=== PATIENT | female | born 1965 | race Two or more races ===

== ENCOUNTER 2018-08-23 12:06 | Emergency (ER) | payer OTHER ==
--- NOTE | 2018-08-23 12:42 | EDPHY ---
General Time Seen by Provider: 08/23/18 12:21 Narrative: CLINICAL IMPRESSION: Paronychia, left ring finger cellulitis and lymphangitis ASSESSMENT/PLAN: Patient is a 53-year-old female with a history of insulin-dependent diabetes, hypertension, hyperlipidemia and chronic kidney disease who presents to the emergency department with left ring finger pain, swelling and redness. Patient is afebrile and not toxic appearing, no acute distress. Physical exam reveals paronychia left lateral ring finger with associated cellulitis and lymphangitis. Her vital signs were reviewed, no findings to suggest sepsis. She has had no constitutional symptoms to suggest systemic illness. No indications for imaging, laboratory studies or admission. There was no evidence of necrotizing skin infection, deep space infection, septic joint, compartment syndrome or neurovascular compromise. No Kanaval's signs- specifically the patient is not in flexion, there is no fusiform swelling over the a tendon, there is no tenderness along the tendon sheath and there is no pain with passive extension of the finger; no findings to suggest tenosynovitis. The paronychia was incised and drained, she was given her 1st dose of antibiotics in the emergency department. She is visiting for her son's graduation from the University with plans to return to [place] on Sunday. Very conservative return precautions were discussed while she is in town, she will otherwise follow up with her primary care provider whom she has already called back in [place]. ED PROCEDURES: Procedure: Digital block, abscess drainage. A digital block was performed for what indication. The block was performed with 1% lidocaine and 0.5% bupivacaine without epinephrine. The patient experienced complete pain relief. The procedure was performed by myself. The patient's paronychia was located on the lateral aspect of the left ring finger. I obtained verbal consent from the patient to drain the abscess who was informed about the possibility of bleeding and pain. The abscess was incised with an 11 blade and purulent drainage was expressed. I irrigated the wound, sterile dressing applied. The patient tolerated the procedure well. The procedure was performed by myself. ED COURSE: 1215: Case discussed with Dr. Johnston, he will also evaluate this patient. 1421: On repeat exam prior to discharge the patient had complete relief of her pain, oral antibiotics were given, she has no further questions or concerns. CHIEF COMPLAINT: Left ring finger pain, swelling and redness HPI: Patient is a 53-year-old female with a significant medical history of insulin- dependent diabetes, hypertension, hyperlipidemia and chronic kidney disease who presents to the emergency department with complaints of left finger pain, swelling and redness. Patient reports on Sunday she clipped her fingernails too short, Sunday morning she noticed some tenderness on the lateral aspect of her left ring finger. This morning she noticed significant swelling, pain and redness that is tracking along the dorsal aspect of her finger up her forearm. Patient does have a history of a similar episode requiring incision, drainage and antibiotic therapy on her left middle finger. Patient has not taken anything for pain. Her blood sugars have been well controlled in her ranging in the 90s to low 100s. She denies any fevers, chills, nausea, vomiting or change in appetite. She has had no other constitutional symptoms. She denies any numbness or tingling of the digit, is experiencing some decreased range of motion secondary to pain mostly at the tip of her finger. She denies any other complaint. ROS: Otherwise negative, please see HPI. PHYSICAL EXAM: General Appearance: Well-developed, obese, no acute distress. Respiratory: There are no retractions, lungs are clear to auscultation. Cardiac: Regular rate and rhythm, no murmurs or gallops. Skin: Warm, dry. Upper Extremities: Right upper extremity is unremarkable. Intact distal pulses, Full range of motion intact, no tenderness, no ecchymosis or edema. Left ring finger with obvious paronychia to the lateral aspect, erythema on the dorsal aspect of the finger only extending into the dorsal aspect of the hand and partially up the forearm. Patient is tender on the pad of the left ring finger however she has no tenderness along the tendon sheath. She has no swelling along the palmar aspect. She has no erythema or calor along the palmar aspect of her hand. Radial pulse 2 +. Two point discrimination is intact distally. Lower Extremities: Unremarkable, Intact distal pulses, No edema, No tenderness , No cyanosis, full range of motion intact, No calf tenderness bilaterally. Neuro: Alert and oriented x3, Cranial nerves 2-12 grossly intact. No focal deficit. Psych: Normal mood, normal affect. No agitation. MEDICAL DECISION MAKING: Patient was seen independently. Secondary supervising physician at time of evaluation was Dr. Johnston, he also evaluated this patient. Diagnosis: Left ring finger paronychia, left ring finger cellulitis and lymphangitis. Summary: See Assessment and Plan. Decision to obtain medical records or history from someone other than the patient: No Review / Summarize previous medical records: None available Discussed patient with another provider: Yes, Dr. Johnston Patient Progress: Stable, discharge. - History Smoking Status: Current every day smoker - Objective Vital Signs: Initial Vital Signs Temperature (C) 36.9 C 08/23/18 12:12 Heart Rate 70 08/23/18 12:12 Respiratory Rate 18 08/23/18 12:12 Blood Pressure 169/88 H 08/23/18 12:12 O2 Sat (%) 96 08/23/18 12:12 O2 Delivery Mode Room Air Allergies/Adverse Reactions: No Known Allergies Allergy (Unverified 08/23/18 12:11) Home Medications: Medication Instructions Recorded Cephalexin [Keflex (*)] 500 mg PO Q6H 10 Days cap 08/23/18 Insulin Admin. Supplies 08/23/18 Sulfamethox/Tmp 800/160 mg 1 tab PO BID 10 Days tab 08/23/18 [Bactrim Ds] Medications Given: Discontinued Medications Cephalexin HCl (Keflex) 500 mg PO EDNOW ONE PRN Reason: Protocol Stop: 08/23/18 13:05 Last Admin: 08/23/18 13:14 Dose: 500 mg Trimethoprim/Sulfamethoxazole (Bactrim Ds) 1 ea PO EDNOW ONE PRN Reason: Protocol Stop: 08/23/18 13:05 Last Admin: 08/23/18 13:15 Dose: 1 ea Departure - Departure Disposition: Home, Routine, Self-Care Clinical Impression: Paronychia of finger Qualifiers: Laterality: left Qualified Code(s): L03.012 - Cellulitis of left finger Cellulitis Qualifiers: Site of cellulitis: extremity Site of cellulitis of extremity: finger Laterality: left Qualified Code(s): L03.012 - Cellulitis of left finger Condition: Good Instructions: Paronychia (ED), Cellulitis (ED) Additional Instructions: DISCHARGE INSTRUCTIONS FROM YOUR PROVIDER Thank you for visiting our emergency department today. Please keep in mind that discharge from the emergency department does not mean that there is nothing wrong - it simply means that we have not identified an emergency condition that requires further evaluation or treatment in the hospital. You should always plan to follow up with primary care for re-evaluation of your condition in the next 2-3 days. Rest, drink plenty of fluids, healthy foods, all to to help your immune system fight the infection and to help the healing process. Keep the wound area clean. Clean the wound areas with soap and water, at least twice daily, then apply antibiotic ointment and a dressing. Change the dressings at least twice daily and/or when soiled. Apply clean, warm compresses as much as possible. Elevate the affected limb as much as possible above the level of the heart. Keflex (antibiotic) as prescribed four times daily, for the next 10 days. Bactrim DS (antibiotic) twice daily as prescribed for the next 10 days. I have given you 10 days of antibiotic therapy, please take for at least 7 and then discuss with your primary care provider whether not to continue the extra 3 days. Consume yogurt and take over the counter probiotics to help prevent diarrhea from the antibiotics. Tylenol as directed every 500 to a 1000 mg every 6-8 hours as directed for pain and/or fever. Do not exceed 3000 mg in 24 hours. Continue your regular medications as prescribed, make sure to continue monitoring her blood sugars. Return for persistent or recurrent fever, vomiting, inability to tolerate the antibiotic(s) by mouth, redness, swelling, warmth, or streaking around the wound , increased redness outside the marked lines, new lesions, extremity swelling, pain out of proportion to what you would expect for this infection, chest or abdominal pain, vomiting, throat tightness, facial swelling, difficulty breathing or swallowing, sores in the mouth or the eyes, or for any other new, worsening or worrisome symptoms. People present with illnesses and injuries in different ways, and it is always possible that we have missed something. Again, thank you for choosing our emergency department. We hope that you feel better. Referrals: NONE *PRIMARY CARE P,. [Primary Care Provider] - 2-3 days, call for appt. ( Please follow-up with your primary care provider in [place] when you return) Prescriptions: Cephalexin [Keflex (*)] 500 mg PO Q6H 10 Days cap Sulfamethox/Tmp 800/160 mg [Bactrim Ds] 1 tab PO BID 10 Days tab
[2018-08-23] MEDS ORDERED: CEPHALEXIN 500 MG CAP PO ONE (13:04)
[2018-08-23] MEDS ORDERED: SULFAMETHOX/TMP 800/160 MG 1 TAB PO ONE (13:04)
[2018-08-23 14:31] VITALS: BP 154/87
== END 2018-08-23 14:31 | disposition home or self-care (01) ==
PROC: 0H9GXZZ Drainage of Left Hand Skin, External Approach (ICD-10-PCS; principal; 2018-08-23)
DX: L03.012 Cellulitis of left finger (principal); I10 Essential (primary) hypertension; E78.5 Hyperlipidemia, unspecified; E11.9 Type 2 diabetes mellitus without complications; Z79.4 Long term (current) use of insulin